=== PATIENT | male | born 1995 | race Caucasian/White ===

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

== ENCOUNTER 2017-05-31 01:39 | Emergency (ER) | payer BC, OTHER ==
[2017-05-31 01:44] VITALS: BP 148/66; PULSE 89; RESP 16; TEMP 97.3; O2SAT 95
--- NOTE | 2017-05-31 01:57 | EDPHY ---
H & P Stated Complaint: Cyst on tailbone Time Seen by Provider: 05/31/17 01:56 HPI/ROS: HPI CHIEF COMPLAINT: CYST ON BACK HISTORY OF PRESENT ILLNESS: Patient is a 21-year-old male he is otherwise healthy, he has a history of pilonidal cyst and has had 3 previous cyst. He has never had an I+D. He has never seen a surgeon for evaluation. He presents to the emergency room with pain at the top of his tailbone. Patient reports that he was in a 16 [address] car ride. He developed pain. He thinks he may have another pilonidal cyst. No fever. Pain is located the top of his gluteal fold. Past Medical History: Pilonidal cyst x3. Past Surgical History: No significant surgical history Social History: Denies drugs alcohol tobacco. [employer] student. Family History: Noncontributory ROS REVIEW OF SYSTEMS: A comprehensive 10 point review of systems is otherwise negative aside from elements mentioned in the history of present illness. Exam Constitutional appears well nontoxic triage nursing summary reviewed, vital signs reviewed, awake/alert. Eyes normal conjunctivae and sclera, EOMI, PERRLA. HENT normal inspection, atraumatic, moist mucus membranes, no epistaxis, neck supple/ no meningismus, no raccoon eyes. Respiratory clear to auscultation bilaterally, normal breath sounds, no respiratory distress, no wheezing. Cardiovascular rate normal, regular rhythm, no murmur, no edema, distal pulses normal. Gastrointestinal soft, non-tender, no rebound, no guarding, normal bowel sounds, no distension, no pulsatile mass. Genitourinary no CVA tenderness. Musculoskeletal no midline vertebral tenderness, full range of motion, no calf swelling, no tenderness of extremities, no meningismus, good pulses, neurovascularly intact. Skin gluteus: At the top of the gluteal fold predominantly on the right side of the gluteal fold is a abscess 2 cm x 3 cm, it is fluctuant and indurated. It is erythematous and warm and tender to palpation. pink, warm, & dry, no rash , skin atraumatic. Neurologic awake, alert and oriented x 3, AAOx3, moves all 4 extremities equally, motor intact, sensory intact, CN II-XII intact, normal cerebellar, normal vision, normal speech. Psychiatric normal mood/affect. Heme/Lymph/Immune no lymphadenopathy. Differential Diagnosis: Includes but is not limited to in a particular order pilonidal cyst, gluteal abscess, cellulitis Medical Decision Making: Plan for this patient discussed treatment options about warm soaks and antibiotics, versus I and D warm soaks and antibiotics he would like to do an I and D. Re-evaluation: Plan will be for I and D here in the emergency room will place on Bactrim, will distally recommend warm soaks 3 times a day. I will also refer him to surgery for out patient follow-up care. Additionally discussed return precautions with him. He understands return if he has worsening pain, fever, worsening symptoms. 0217: Pilonidal cyst I and D: Patient gave verbal consent for I and D of this gluteal abscess. Lidocaine 1% with epinephrine was used for local anesthesia. 5 cc were instilled into the abscess. He tolerated this very well. An 11 blade scalpel was used to make an incision approximately 2 cm in length. I was able to get some pus approximately 1-2 cc out. I did probe the wound with a Q- tip and there was no significant tracking. A dressing was applied. There were no complications. Patient be placed on Bactrim Patient understands do warm compresses 2 to 3 times a day. Additionally I did recommend he follows up with surgery I have given him referral as this is 4th pilonidal cyst issue. Return precautions discussed he understands return if worsening pain, fever questions or concerns. Source: Patient - Personal History Current Tetanus/Diphtheria Vaccine: Yes Current Tetanus Diphtheria and Acellular Pertussis (TDAP): Yes - Medical/Surgical History Hx Asthma: Yes Hx Chronic Respiratory Disease: No Hx Diabetes: No Hx Cardiac Disease: No Hx Renal Disease: No Hx Cirrhosis: No Hx Alcoholism: No Hx HIV/AIDS: No Hx Splenectomy or Spleen Trauma: No Other PMH: PSHx: ACL repair L. PMHx: ADD/ADHD - Social History Smoking Status: Former smoker Constitutional: Initial Vital Signs Temperature (C) 36.3 C 05/31/17 01:41 Heart Rate 89 05/31/17 01:41 Respiratory Rate 16 05/31/17 01:41 Blood Pressure 148/66 H 05/31/17 01:41 O2 Sat (%) 95 05/31/17 01:41 O2 Delivery Mode Room Air Allergies/Adverse Reactions: No Known Allergies Allergy (Verified 05/31/17 01:43) Home Medications: Medication Instructions Recorded Hydrocodone/APAP 5/325 [[place] 1 - 2 tab PO Q4H PRN #10 tab 05/31/17 5/325] Ibuprofen [Motrin (*)] 800 mg PO Q6-8PRN #10 tab 05/31/17 Sulfamethox/Tmp 800/160 mg 1 tab PO BID@1000,2200 #14 tab 05/31/17 [Bactrim Ds] Medical Decision Making - Data Points Medications Given: Discontinued Medications Hydrocodone Bitart/Acetaminophen ([place] 5/325mg Prepack#6) 1 btl TAKEHOME EDNOW ONE Stop: 05/31/17 02:03 Last Admin: 05/31/17 02:11 Dose: 1 btl Hydrocodone Bitart/Acetaminophen ([place] 5/325) 1 tab PO EDNOW ONE Stop: 05/31/17 02:03 Last Admin: 05/31/17 02:11 Dose: 1 tab Trimethoprim/Sulfamethoxazole (Bactrim Ds) 1 ea PO EDNOW ONE PRN Reason: Protocol Stop: 05/31/17 02:04 Last Admin: 05/31/17 02:11 Dose: 1 ea Departure - Departure Disposition: Home, Routine, Self-Care Clinical Impression: Pilonidal cyst Condition: Good Instructions: Hydrocodone/Acetaminophen (By mouth), Pilonidal Cyst (ED) Additional Instructions: 1. Warm compresses or warm soaks 2 to 3 times a day. 2. Antibiotics as prescribed. 3. Follow up with surgery. 4. Return emergency room if you have worsening symptoms questions or concerns. Referrals: NONE *PRIMARY CARE P,. [Primary Care Provider] - As per Instructions Prescriptions: Hydrocodone/APAP 5/325 [[place] 5/325] 1 - 2 tab PO Q4H PRN #10 tab PRN Reason: Pain, Moderate Ibuprofen [Motrin (*)] 800 mg PO Q6-8PRN #10 tab Sulfamethox/Tmp 800/160 mg [Bactrim Ds] 1 tab PO BID@1000,2200 #14 tab
[2017-05-31] MEDS ORDERED: HYDROCOD/APAP 5/325 PREPACK#6 BTL TAKEHOME ONE (02:02)
[2017-05-31] MEDS ORDERED: HYDROCODONE/APAP 5/325 TAB PO ONE (02:02)
[2017-05-31] MEDS ORDERED: SULFAMETHOX/TMP 800/160 MG 1 TAB PO ONE (02:03)
== END 2017-05-31 02:27 | disposition home or self-care (01) ==
PROC: 0H98XZZ Drainage of Buttock Skin, External Approach (ICD-10-PCS; principal; 2017-05-31)
DX: L05.91 Pilonidal cyst without abscess (principal); J45.909 Unspecified asthma, uncomplicated; Z87.891 Personal history of nicotine dependence

== ENCOUNTER 2017-06-02 13:19 | Emergency (ER) | payer BC ==
--- NOTE | 2017-06-02 15:32 | EDPHY ---
H & P Time Seen by Provider: 06/02/17 14:47 HPI/ROS: CHIEF COMPLAINT: Increased swelling and redness to the cleft of the buttock HISTORY OF PRESENT ILLNESS: 21-year-old male prior history of pilonidal abscesses seen the ER 2 days ago for incision and drainage, started on antibiotics, return to the ER complaining of reaccumulation of erythema and pain. No pain with defecation. No fever no chills. No nausea no vomiting. No constitutional symptoms PHYSICAL EXAM (Prior to examination, patient consented to physical exam, hands were washed and my usual and customary physical exam procedures followed) 1) GENERAL: Well-developed, well-nourished, alert and oriented. Appears to be in no acute distress. 2) HEAD: Normocephalic 3) HEENT: sclera anicteric 4) LUNGS: Breathing comfortably. 5) SKIN: Left midline at the cleft of the buttock he has an area measuring 4 cm x 2 cm of erythema, induration, fluctuance with no active drainage. No extension to the perianal region. No crepitus to the buttock Smoking Status: Former smoker Constitutional: Initial Vital Signs Temperature (C) 36.7 C 06/02/17 13:22 Heart Rate 70 06/02/17 13:22 Respiratory Rate 18 06/02/17 13:22 Blood Pressure 116/84 H 06/02/17 13:22 O2 Sat (%) 97 06/02/17 13:22 O2 Delivery Mode Room Air Allergies/Adverse Reactions: No Known Allergies Allergy (Verified 05/31/17 01:43) Home Medications: Medication Instructions Recorded Hydrocodone/APAP 5/325 [[place] 1 - 2 tab PO Q4H PRN #10 tab 05/31/17 5/325] Ibuprofen [Motrin (*)] 800 mg PO Q6-8PRN #10 tab 05/31/17 Sulfamethox/Tmp 800/160 mg 1 tab PO BID@1000,2200 #14 tab 05/31/17 [Bactrim Ds] MDM/Departure - MDM Procedures: Procedure: Abscess drainage. The patient's abscess was located on the cleft of the buttock. I obtained verbal consent from the patient to drain the abscess who was informed about the possibility of bleeding and pain. The abscess was incised with a scalpel and a large amount of purulent drainage was expressed. I irrigated the wound. The patient tolerated the procedure well. The procedure was performed by myself. ED Course/Re-evaluation: Recommend patient continue his antibiotics. Recommend he continues analgesia as needed. He has been given the name of on-call general surgery Dr. Lozano for further evaluation follow-up. He feels significant relief after incision and drainage. Care of patient under supervision of secondary supervising physician Dr Anaya. - Depart Disposition: Home, Routine, Self-Care Clinical Impression: Pilonidal abscess Condition: Good Instructions: Pilonidal Cyst (ED) Additional Instructions: Recommend he follow up with a general surgeon. Return to the ER if you develop fevers, chills or any other symptoms that concern you. Referrals: Ashutosh Lozano MD [Medical Doctor] - 2-3 days, call for appt. (Dr. Lozano is a general surgeon)
[2017-06-02 15:56] VITALS: BP 130/76; PULSE 77; RESP 16; TEMP 97.9; O2SAT 96
== END 2017-06-02 15:56 | disposition home or self-care (01) ==
PROC: 0H98XZZ Drainage of Buttock Skin, External Approach (ICD-10-PCS; principal; 2017-06-02)
DX: L05.01 Pilonidal cyst with abscess (principal); Z87.891 Personal history of nicotine dependence